=== PATIENT | male | born 1945 ===

== ENCOUNTER 2020-12-25 08:39 | Outpatient (CLI) | payer OTHER, MEDICARE ==
--- NOTE | 2020-12-25 13:17 | CT Report ---
PROCEDURE: Low Dose Lung Cancer Screen INDICATIONS: PREVIOUS SMOKER TECHNIQUE: Noncontrast low-dose 5 mm thick sections acquired from the pulmonary apices to the posterior costophr enic angles. 7 mm thick coronal and sagittal MIP reformats were then acquired. For radiation dose r eduction, the following was used: automated exposure control, adjustment of mA and/or kV according t o patient size. COMPARISON: None. FINDINGS: Image quality: Excellent. Lungs and pleura: Interstitial prominence is present, and there is also a pattern of scattered areas of mild linear lung parenchymal scarring best seen at the lung bases. A single identified 6 mm pulmo nary nodule is present at the lateral segment right middle lobe, series 4 image 184. Mediastinum: Heart size is normal. No pericardial effusion. No mediastinal adenopathy by size crit eria. Thoracic aorta and central pulmonary arteries are normal in size. Esophagus is normal in chidi dada. No hiatal hernia. Bones and chest wall: No suspicious bony lesions. No vertebral body compression fractures. No axil [place] or supraclavicular adenopathy by size criteria. The thyroid is normal in size and there are no incidental findings. Prior sternotomy. Abdomen: Visualized upper abdomen solid organs and bowel loops appear normal in the absence of contr ast. IMPRESSION: There is a 6 mm nonspecific nodule without internal calcifications at the lateral aspect of the right middle lobe, lateral segment. There also is a pattern of mild interstitial prominence, likelihood of centrilobular emphysema and mild lung base scarring likely due to old inflammatory events. Global mild cardiomegaly. Moderate coronary artery calcifications. Prior sternotomy. No comparison prior study. Lung RADS category 2, likelihood of early manifestation of lung carcinoma but given the baseline evaluation by this study is recommended that follow-up noncontrast low-dose CT scan be obtained in 6 months to assist in establishing benign etiology for the right middle lobe lat eral segment 6 mm lung nodule.. CLINICAL RECOMMENDATION STATEMENTS: In patients <35 years with an ITN detected on CT, MRI, or extrathyroidal ultrasound, the Committee re commends further evaluation with dedicated thyroid ultrasound if the nodule is ?1 cm and has no suspi cious imaging features, and if the patient has normal life expectancy. In patients ?35 years with an ITN detected on CT, MRI, or extrathyroidal ultrasound, the Committee re commends further evaluation with dedicated thyroid ultrasound if the nodule is ?1.5 cm and has no patricia picious imaging features, and if the patient has normal life expectancy. (ACR, 2014) Reviewed by: Tex Heredia MD on 12/25/2020 12:16 PM HERNANDO Approved by: Tex Heredia MD on 12/25/2020 12:16 PM HERNANDO Station ID: [id number]
== END 2020-12-25 08:40 | disposition home or self-care (01) ==
LOC: DI 08:39
PROVIDERS: ATTEND Student in an Organized Health Care Education/Training Program
DX: Z12.2 Encounter for screening for malignant neoplasm of respiratory organs (principal); R91.1 Solitary pulmonary nodule; Z87.891 Personal history of nicotine dependence; I51.7 Cardiomegaly

== ENCOUNTER 2022-01-09 12:31 | Emergency (ER) | payer MEDICARE, OTHER ==
--- NOTE | 2022-01-09 13:08 | XRAY Report ---
PROCEDURE: Chest 2 View X-Ray INDICATIONS: shortness of air TECHNIQUE: 2 view(s) of the chest. COMPARISON: CT chest 12/25/2020 FINDINGS: Surgical changes and devices: None. Lungs and pleura: There is appearance of increased pulmonary vascularity. Slight blunting of the cost ophrenic angles are present. Linear opacities are present within the bases. Mediastinum: Mediastinal contours are normal. Heart size is enlarged.. Bones and chest wall: No suspicious bony abnormalities. Soft tissues appear unremarkable. IMPRESSION: Cardiomegaly with increased vascularity suggestive of edema. Linear basilar opacities are present sug gestive atelectasis. Trace blunting in the costophrenic angle suggestive of effusions versus scarring. Reviewed by: Sarah Mendoza MD on 01/09/2022 1:07 PM PDT Approved by: Sarah Mendoza MD on 01/09/2022 1:07 PM PDT Station ID: [id number]
--- NOTE | 2022-01-09 13:40 | ED Physician Documentation ---
History of Present Illness - Stated complaint Stated Complaint: SOA - Chief complaint Chief Complaint: Resp - Additonal information Additional information: 76-year-old male presents to the emergency department for evaluation of progressive dyspnea. He has a past medical history that includes atrial fibrillation, COPD, coronary artery disease status post CABG about 8 years ago who has had progressive dyspnea for the last few months but acutely worse over the last few weeks. He does have mostly a dry cough. He is increasingly labored with any activity. He is not yet oxygen dependent. Quit tobacco use about 7 years ago. He denies any leg swelling exertional chest pain. No nausea or vomiting. 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 Review of Systems Constitutional: denies: Fever, Chills Eyes: reports: Reviewed and negative Nose: reports: Reviewed and negative Cardiac: reports: Reviewed and negative Respiratory: reports: Dyspnea, Cough GI: reports: Reviewed and negative : denies: Dysuria Skin: reports: Reviewed and negative Musculoskeletal: reports: Reviewed and negative PD PAST MEDICAL HISTORY - Present Medications Home Medications: Ambulatory Orders Medication Instructions Recorded Confirmed Furosemide [Lasix] 20 mg PO DAILY #30 tablet 01/09/22 Spironolactone [Aldactone] 25 mg PO DAILY #30 tablet 01/09/22 - Allergies Allergies/Adverse Reactions: Allergies Allergy/AdvReac Type Severity Reaction Status Date / Time No Known Drug Allergies Allergy Verified 01/09/22 12:48 PD ED PE NORMAL - General General: Alert and oriented X 3, No acute distress, Well developed/nourished - HEENT HEENT: Atraumatic - Neck Neck: Supple, no meningeal sign, No adenopathy - Cardiac Cardiac: No murmur. No: RRR (Irregularly irregular rhythm) - Respiratory Respiratory: No: Clear bilaterally (Diffuse crackles in the lower lung guajardo. No wheeze noted. Mild tachypnea in the high 20s Room air sats 97%) - Abdomen Abdomen: Normal bowel sounds, Soft, Non tender - Back Back: No CVA TTP, No spinal TTP - Derm Derm: Normal color, Warm and dry, No rash - Extremities Extremities: No deformity, No tenderness to palpate, Normal ROM s pain - Neuro Neuro: Alert and oriented X 3, client technologies specialist 2-12 intact Eye Opening: Spontaneous Motor: Obeys Commands Verbal: Oriented GCS Score: 15 Results - Vitals Vitals: Vital Signs - 24 hr 01/09/22 01/09/22 01/09/22 12:41 15:13 15:30 Temperature 36.4 C L Heart Rate 65 78 68 Respiratory 20 20 16 Rate Blood Pressure 143/61 H 144/79 H O2 Saturation 95 96 Oxygen O2 Source Room air - EKG (time done) 1402 Rate: Rate (enter#) (61) Rhythm: Atrial fibrillation, Other (pvc) [place]: Other Intervals: No: Prolonged QT QRS: Poor R wave progression Ischemia: Q waves (anterior), Non specific changes (V5V6) - Labs Labs: Laboratory Tests 01/09/22 01/09/22 01/09/22 13:37 13:47 13:47 WBC 5.9 RBC 4.74 Hgb 13.7 L Hct 43.4 MCV 91.6 MCH 28.9 MCHC 31.6 L RDW 14.7 Plt Count 207 MPV 11.0 Neut # (Auto) 3.7 Lymph # (Auto) 1.4 L Tillman # (Auto) 0.6 Eos # (Auto) 0.2 Baso # (Auto) 0.0 Absolute Nucleated RBC 0.00 Nucleated RBC % 0.0 PT INR Sodium 138 Potassium 4.2 Chloride 103 Carbon Dioxide 26 Anion Gap 9.0 BUN 11 Creatinine 0.9 Estimated GFR (MDRD) 82 L Glucose 98 Calcium 9.3 Total Bilirubin 0.9 AST 14 ALT 12 Alkaline Phosphatase 62 Troponin I High Sens 37.5 H* B-Natriuretic Peptide Total Protein 7.4 Albumin 4.1 Globulin 3.3 Albumin/Globulin Ratio 1.2 Lipase 28 01/09/22 01/09/22 13:47 13:47 WBC RBC Hgb Hct MCV MCH MCHC RDW Plt Count MPV Neut # (Auto) Lymph # (Auto) Tillman # (Auto) Eos # (Auto) Baso # (Auto) Absolute Nucleated RBC Nucleated RBC % PT 27.2 H INR 2.4 H Sodium Potassium Chloride Carbon Dioxide Anion Gap BUN Creatinine Estimated GFR (MDRD) Glucose Calcium Total Bilirubin AST ALT Alkaline Phosphatase Troponin I High Sens B-Natriuretic Peptide 410 H Total Protein Albumin Globulin Albumin/Globulin Ratio Lipase - Rads (name of study) cxr Radiology: Final report received (Cardiomegaly with increased vascularity suggestive of edema. Linear basilar opacities are present suggestive of atelectasis.) PD MEDICAL DECISION MAKING - ED course Complexity details: reviewed results, re-evaluated patient, considered differential, d/w patient, d/w [employer] consultant (Alexis) ED course: 76-year-old male presents to the emergency department for evaluation of worsening dyspnea. He does have a history of atrial fibrillation anticoagulated on Coumadin. Also has a history of coronary artery disease status post CABG about 7 years ago he has been seen only once by Dr. Harriet Isbell in [place]. On presentation he is mildly tachypneic in the mid 20s but not hypoxic. He has no anasarca or lower extremity edema. Screening chest x-ray does show some cardiomegaly as well as some likely volume overload. On auscultation he does h ave some diffuse crackles. His screening labs were most significant for a mildly elevated BNP of just over 400. Initial troponin was 37.5. On repeat it is 41.7. Essentially static.I suspect that this is demand ischemia in the setting of acute on chronic heart failure. He is not yet on any diuretics. Pt is in a fib. Rate well controlled on metoprolol I did discuss with the patient the option of admitting him temporarily to the hospital for management of his heart failure however he declines that today. I then discussed the case with Dr. Espinoza on-call needle grinder for Dr. Johnson. His office will reach out to the patient next week to arrange follow-up which will include an echocardiogram. In the short-term the patient will be initiated on Lasix and Aldactone with screening labs to be repeated next week. Departure - Departure Disposition: Home, Self Care Clinical Impression: Elevated brain natriuretic peptide (BNP) level, Elevated troponin Dyspnea Qualifiers: Dyspnea type: dyspnea on exertion Qualified Code(s): R06.00 - Dyspnea, unspecified Congestive heart failure Qualifiers: Heart failure type: unspecified Heart failure chronicity: unspecified Qualified Code(s): I50.9 - Heart failure, unspecified Condition: Serious Record reviewed to determine appropriate education?: Yes Instructions: ED CHF General Follow-Up: Herb Johnson MD [Physician No Access] - Prescriptions: Spironolactone [Aldactone] 25 mg PO DAILY #30 tablet Furosemide [Lasix] 20 mg PO DAILY #30 tablet Comments: Galindo you are seen today in the emergency department because you have had worsening shortness of air over the last few months that has gotten worse acutely in the last few weeks. You do have a history of COPD, atrial fibrillation as well as a previous heart attack and CABG. Today the screening chest x-ray does show an enlarged heart which you were previously aware of. However it also shows that you are developing some excessive amount of fluid in your lungs. This coupled with your lab findings indicate to us that you are likely developing heart failure. In order to help manage this we would like to start you on medications called diuretics. This increases the amount of water that you urinate. Please take these medications in the morning to help prevent yourself from urinating through the night. Dr. Johnson office will be giving you a phone call early next week to have your screening labs reobtained as well as to arrange follow-up in the office. You will need an echocardiogram to determine the type of heart failure you have and to help optimize your medications. The prescription for the furosemide also known as Lasix and the Aldactone also known as spironolactone have been sent to the [facility] in [place].
[2022-01-09 13:52] LABS: BASOPHILS % (AUTO) 0.7 %; EOSINOPHILS # (AUTO) 0.2 10^3/uL (0.0-0.7); EOSINOPHILS % (AUTO) 2.7 %; HCT - HEMATOCRIT 43.4 % (42.0-52.0); HGB - HEMOGLOBIN 13.7 g/dL (14.0-18.0); LYMPHOCYTES # (AUTO) 1.4 10^3/uL (1.5-3.5); LYMPHOCYTES % (AUTO) 23.4 %; MEAN CORPUSCULAR HEMOGLOBIN 28.9 pg (27.0-31.0); MEAN CORPUSCULAR HGB CONC 31.6 g/dL (32.0-36.0); MEAN CORPUSCULAR VOLUME 91.6 fL (80.0-94.0); MONOCYTES # (AUTO) 0.6 10^3/uL (0.0-1.0); MONOCYTES % (AUTO) 9.9 %; NEUTROPHILS # (AUTO) 3.7 10^3/uL (1.5-6.6); NEUTROPHILS % (AUTO) 62.8 %; PLT - PLATELET COUNT 207 10^3/uL (130-450); RED BLOOD COUNT 4.74 10^6/uL (4.70-6.10); RED CELL DISTRIBUTION WIDTH 14.7 % (12.0-15.0); WHITE BLOOD COUNT 5.9 x10^3/uL (4.8-10.8)
[2022-01-09 14:06] LABS: ALBUMIN 4.1 g/dL (3.2-5.5); ALBUMIN/GLOBULIN RATIO 1.2 (1.0-2.2); BILIRUBIN,TOTAL 0.9 mg/dL (0.2-1.0); CALCIUM 9.3 mg/dL (8.5-10.3); CREATININE 0.9 mg/dL (0.6-1.2); POTASSIUM 4.2 mmol/L (3.5-5.0); TOTAL PROTEIN 7.4 g/dL (6.7-8.2)
[2022-01-09 14:08] LABS: INR 2.4 (0.8-1.2); PT - PROTHROMBIN TIME 27.2 secs (9.9-12.6)
[2022-01-09] MEDS ORDERED: FUROSEMIDE 20 MG/2 ML VIAL IVP STA (14:22)
[2022-01-09] MEDS ORDERED: IPRATROPIUM/ALBUTEROL 3 ML NEB INH STA (14:35)
[2022-01-09 15:38] VITALS: BP 144/79
== END 2022-01-09 16:17 | disposition home or self-care (01) ==
LOC: ED 12:31
DX: I48.91 Unspecified atrial fibrillation (principal); I50.9 Heart failure, unspecified; R77.8 Other specified abnormalities of plasma proteins; R06.09 Other forms of dyspnea; R79.89 Other specified abnormal findings of blood chemistry
CPT/HCPCS: 36415; 80053; 83690; 83880; 84484; 85025; 85610; 93005; 94640; 94664; 96374; 99284